=== PATIENT | male | born 1990 | race Caucasian/White ===

== ENCOUNTER 2017-09-08 02:34 | Emergency (ER) | payer MEDICAID ==
[~2017-09-08] VITALS: Ht 188 cm; Wt 114.0 kg
[2017-09-08] MEDS ORDERED: IBUPROFEN 600MG TABLET PO ONE (05:00)
[2017-09-08 05:23] LABS: KETONES URINE NEGATIVE (NEGATIVE); LEUKOCYTE ESTERASE URINE NEGATIVE (NEGATIVE); NITRITE URINE NEGATIVE (NEGATIVE); OCCULT BLOOD URINE NEGATIVE (NEGATIVE); PROTEIN URINE NEGATIVE (NEGATIVE); SPECIFIC GRAVITY URINE 1.035 (1.005-1.030); UROBILINOGEN URINE 0.2 E.U./dL (0.2-1.0)
[2017-09-08 05:25] VITALS: BP 141/83
[2017-09-08 05:25] LABS: CLARITY URINE CLEAR (CLEAR); COLOR URINE YELLOW (YELLOW)
== END 2017-09-08 05:38 | disposition home or self-care (01) ==
LOC: ER 02:34
DX: N48.89 Other specified disorders of penis (principal); R30.0 Dysuria; F17.200 Nicotine dependence, unspecified, uncomplicated
CPT/HCPCS: 81003; 99283

== ENCOUNTER 2019-09-23 02:02 | Emergency (ER) | payer MEDICAID, OTHER ==
[~2019-09-23] VITALS: Ht 188 cm; Wt 109.9 kg
[2019-09-23 03:37] VITALS: BP 121/75
== END 2019-09-23 03:38 | disposition home or self-care (01) ==
LOC: ER 02:02
DX: S61.412A Laceration without foreign body of left hand, initial encounter (principal); X58.XXXA Exposure to other specified factors, initial encounter; Y93.89 Activity, other specified; Y92.89 Other specified places as the place of occurrence of the external cause; Y99.8 Other external cause status; F17.290 Nicotine dependence, other tobacco product, uncomplicated
CPT/HCPCS: 12002; 99283; Z7610